=== PATIENT | male | born 1955 | race Caucasian/White ===

== ENCOUNTER 2019-05-29 16:39 | Observation (INO) | payer MEDICARE ==
[2019-05-29] MEDS ORDERED: ASPIRIN 81 MG TABLET, CHEWABLE PO ONE (16:41)
[2019-05-29 16:51] LABS: ABSOLUTE EOSINOPHILS # (AUTO) 0.3 10^3/uL (0.0-0.6); ABSOLUTE LYMPHOCYTES (AUTO) 1.5 10^3/uL (0.5-4.7); ABSOLUTE MONOCYTES (AUTO) 0.6 10^3/uL (0.1-1.4); ABSOLUTE NEUT (AUTO) 4.6 10^3/uL (1.7-8.2); BASOPHILS % (AUTO) 0.5 % (0-2); EOSINOPHILS % (AUTO) 3.8 % (0-6); HEMATOCRIT 42.5 % (37.9-51.0); HEMOGLOBIN 14.2 g/dL (13.5-17.0); LYMPHOCYTES % (AUTO) 21.3 % (13-45); MEAN CORPUSCULAR HEMOGLOBIN 31.1 pg (27.0-33.4); MEAN CORPUSCULAR HGB CONC 33.4 g/dL (32.0-36.0); MEAN CORPUSCULAR VOLUME 93 fl (80-97); MONOCYTES % (AUTO) 8.6 % (3-13); PLATELET COUNT 195 10^3/uL (150-450); RED BLOOD COUNT 4.56 10^6/uL (4.35-5.55); RED CELL DISTRIBUTION WIDTH 14.2 % (11.5-14.0); SEGMENTED NEUTROPHILS % (AUTO) 65.8 % (42-78); TOTAL CELLS COUNTED % (AUTO) 100 %
[2019-05-29 17:18] LABS: ALBUMIN 4.4 g/dL (3.5-5.0); ALKALINE PHOSPHATASE 77 U/L (38-126); ANION GAP 10 (5-19); ASPARTATE AMINO TRANSFERASE 28 U/L (17-59); BILIRUBIN,DIRECT 0.2 mg/dL (0.0-0.4); BILIRUBIN,TOTAL 0.4 mg/dL (0.2-1.3); BLOOD UREA NITROGEN 15 mg/dL (7-20); CALCIUM 10.2 mg/dL (8.4-10.2); CARBON DIOXIDE 32 mmol/L (22-30); CHLORIDE 98 mmol/L (98-107); CREATINE KINASE 47 U/L (55-170); GLUCOSE 163 mg/dL (75-110); POTASSIUM 4.6 mmol/L (3.6-5.0); TOTAL PROTEIN 6.9 g/dL (6.3-8.2)
[2019-05-29 17:24] LABS: CREATINE KINASE MB 0.93 ng/mL (<4.55)
[2019-05-29 17:35] LABS: TROPONIN I < 0.012 ng/mL
--- NOTE | 2019-05-29 18:25 | ER Document Report ---
ED Cardiac - General Chief Complaint: Chest Pain Stated Complaint: CHEST PAIN Time Seen by Provider: 05/29/19 17:07 Primary Care Provider: MEGAN YU PA-C [Primary Care Provider] - Follow up as needed Mode of Arrival: Ambulatory Information source: Patient TRAVEL OUTSIDE OF THE [place] IN LAST 30 DAYS: No - HPI Notes: 64-year-old male with history of diabetes and significant family history of heart disease presents with chest pain. He states it started approximately 3 days ago. Is been intermittent. It is a pressure sensation in the center of the chest that radiates to the left arm. It is moderate in intensity. He states that he has not had any type of cardiac evaluation in 2 years. 2 years ago he did have a negative heart catheterization. He states today he went saw his primary care doctor who stated that he had some "abnormalities" on his EKG and referred him to the emergency department. He states he had some nausea but no vomiting or diarrhea. No shortness of breath. No cough cold or congestion. - Related Data Allergies/Adverse Reactions: No Known Allergies Allergy (Verified 05/29/19 17:04) Past Medical History - General Information source: Patient - Social History Smoking Status: Current Some Day Smoker - States he smokes cigars Family History: CAD Patient has suicidal ideation: No Patient has homicidal ideation: No Review of Systems - Review of Systems Constitutional: denies: Chills, Fever Cardiovascular: Chest pain. denies: Palpitations Respiratory: denies: Cough, Short of breath Gastrointestinal: Nausea. denies: Abdominal pain, Vomiting -: Yes All other systems reviewed and negative Physical Exam - Vital signs Vitals: Resp BP Pulse Ox 23 H 126/82 H 100 05/29/19 16:54 05/29/19 16:54 05/29/19 16:54 Interpretation: Normal - General General appearance: Appears well, Alert - HEENT Head: Normocephalic, Atraumatic Eyes: Normal Pupils: PERRL - Respiratory Respiratory status: No respiratory distress Chest status: Nontender Breath sounds: Normal Chest palpation: Normal - Cardiovascular Rhythm: Regular Heart sounds: Normal auscultation Murmur: No - Abdominal Inspection: Normal Distension: No distension Bowel sounds: Normal Tenderness: Nontender Organomegaly: No organomegaly - Back Back: Normal, Nontender - Extremities General upper extremity: Normal inspection, Nontender, Normal color, Normal ROM, Normal temperature General lower extremity: Normal inspection, Nontender, Normal color, Normal ROM, Normal temperature, Normal weight bearing. No: Ehsan's sign - Neurological Neuro grossly intact: Yes Cognition: Normal Orientation: AAOx4 Trudy Coma Scale Eye Opening: Spontaneous Edison Coma Scale Verbal: Oriented Edison Coma Scale Motor: Obeys Commands Trudy Coma Scale Total: 15 Speech: Normal Motor strength normal: LUE, RUE, LLE, RLE Sensory: Normal - Psychological Associated symptoms: Normal affect, Normal mood - Skin Skin Temperature: Warm Skin Moisture: Dry Skin Color: Normal Course - Re-evaluation Re-evalutation: 05/29/19 18:23 64-year-old male with a heart score of 5 presents with chest pain for 3 days. Is been intermittent. No significant evaluation for 2 years. Based upon patient's risk score he will be admitted to telemetry for further evaluation. - Vital Signs Vital signs: Temp Pulse Resp BP Pulse Ox 98.7 F 15 122/70 97 05/29/19 16:58 05/29/19 18:01 05/29/19 18:01 05/29/19 18:01 - Laboratory Result Diagrams: 05/29/19 16:12 05/29/19 16:12 Laboratory results interpreted by me: 05/29/19 05/29/19 16:12 16:12 RDW 14.2 H Carbon Dioxide 32 H Glucose 163 H Creatine Kinase 47 L 05/29/19 18:23 Laboratory 05/29/19 05/29/19 05/29/19 16:12 16:12 16:12 WBC 7.0 RBC 4.56 Hgb 14.2 Hct 42.5 MCV 93 MCH 31.1 MCHC 33.4 RDW 14.2 H Plt Count 195 Lymph % (Auto) 21.3 Yates % (Auto) 8.6 Eos % (Auto) 3.8 Baso % (Auto) 0.5 Absolute Neuts (auto) 4.6 Absolute Lymphs (auto) 1.5 Absolute Monos (auto) 0.6 Absolute Eos (auto) 0.3 Absolute Basos (auto) 0.0 Seg Neutrophils % 65.8 Sodium 139.9 Potassium 4.6 Chloride 98 Carbon Dioxide 32 H Anion Gap 10 BUN 15 Creatinine 0.84 Est GFR ( Amer) > 60 Est GFR (MDRD) Non-Af > 60 Glucose 163 H Calcium 10.2 Total Bilirubin 0.4 Direct Bilirubin 0.2 Neonat Total Bilirubin Not Reportable Neonat Direct Bilirubin Not Reportable Neonat Indirect Bili Not Reportable AST 28 ALT 29 Alkaline Phosphatase 77 Creatine Kinase 47 L CK-MB (CK-2) 0.93 Troponin I < 0.012 Total Protein 6.9 Albumin 4.4 - Diagnostic Test Radiology reviewed: Image reviewed, Reports reviewed - EKG Interpretation by Me Rate: Normal - 68 Rhythm: Other - wap [place]/QRS: No: Right axis deviation, Left axis deviation Discharge - Discharge Clinical Impression: Chest pain at rest Condition: Fair Disposition: ADMITTED INPATIENT Admitting Provider: Sveta (Hospitalist) Unit Admitted: Telemetry Referrals: MEGAN YU PA-C [Primary Care Provider] - Follow up as needed
--- NOTE | 2019-05-29 18:26 | RADIOLOGY REPORT (SQ) ---
EXAM DESCRIPTION: CHEST SINGLE VIEW COMPLETED DATE/TIME: 05/29/2019 6:17 pm REASON FOR STUDY: bed 7 cp COMPARISON: None. EXAM PARAMETERS: NUMBER OF VIEWS: One view. TECHNIQUE: Single frontal radiographic view of the chest acquired. RADIATION DOSE: NA LIMITATIONS: Incomplete inspiration. FINDINGS: LUNGS AND PLEURA: No opacities, masses or pneumothorax. No pleural effusion. MEDIASTINUM AND HILAR STRUCTURES: No masses. Contour normal. HEART AND VASCULAR STRUCTURES: Heart normal in size. Aortic atherosclerosis. BONES: No acute findings. HARDWARE: None in the chest. OTHER: No other significant finding. IMPRESSION: No evidence of acute cardiopulmonary process. TECHNICAL DOCUMENTATION: JOB ID: [id number] [employer]- All Rights Reserved Reading location - IP/workstation name: [email or web address]
[2019-05-29] MEDS ORDERED: HYDRALAZINE HCL INJ/PF 20 MG/1 ML SDV IV PRN (18:48)
[2019-05-29] MEDS ORDERED: NITROGLYCERIN 0.4 MG/TAB 25 TAB/BOTTLE SL PRN (18:48)
[2019-05-29] MEDS ORDERED: MORPHINE SULFATE 10 MG/ML INJ IV PRN (18:48)
[2019-05-29] MEDS ORDERED: OXYCODONE-ACETAMINOPHEN 5-325 MG TABLET PO PRN (18:52)
[2019-05-29] MEDS ORDERED: GLUCAGON,HUMAN RECOMB 1 MG INJ SUBCUT PRN (18:52)
[2019-05-29] MEDS ORDERED: DEXTROSE 40% GEL 15 GM TUBE PO PRN ×4 (18:52→18:55)
[2019-05-29] MEDS ORDERED: TEMAZEPAM 7.5 MG CAPSULE PO PRN (18:52)
[2019-05-29] MEDS ORDERED: DEXTROSE 50%-WATER 25 GM/50 ML DISP.SYRIN IV PRN ×4 (18:52→18:55)
[2019-05-29] MEDS ORDERED: ONDANSETRON HCL INJ/PF 4 MG/2 ML SDV IV PRN (18:52)
[2019-05-29] MEDS ORDERED: IPRATROPIUM/ALBUTEROL 0.5-2.5 MG/3 ML AMPUL NEB PRN (18:52)
[2019-05-29] MEDS ORDERED: PROMETHAZINE HCL INJ 25 MG/1 ML VIAL IV PRN (18:52)
[2019-05-29] MEDS ORDERED: MAGNESIUM HYDROXIDE SUSP 30 ML UDCUP PO PRN (18:52)
[2019-05-29] MEDS ORDERED: NORMAL SALINE 1000 ML 1,000 ML IV PRN (18:52)
[2019-05-29] MEDS ORDERED: ACETAMINOPHEN 325 MG TABLET PO PRN (18:52)
[2019-05-29] MEDS ORDERED: GLUCAGON,HUMAN RECOMB 1 MG INJ IM PRN (18:55)
--- NOTE | 2019-05-29 19:05 | PDOC H&P ---
History of Present Illness Admission Date/PCP: 05/29/19 18:40 MEGAN YU PA-C History of Present Illness: SUSAN SOMMER is a 64 year old male past medical history of hypertension, samreen betes, dyslipidemia, CKD, significant past medical history of CAD, presented to presenting to ED complaining of substernal chest pain for the last several days, pain is pressure-like, constant, eases off with rest, no exacerbating factors identified, radiating to left arm, associated with diaphoresis, anxiety and nausea. Denies any fever, orthopnea, paroxysmal nocturnal dyspnea, and on exertion, extremity edema, abdominal pain, diarrhea, constipation or any urinary symptoms. Today he was seen by his PCP and some EKG abnormalities were noticed and patient was referred to ED. Stating he had a botched ERCP several years ago, coded, ended up in ICU for a month. EKG continues may have been chronic due to that. Family history is positive for father having NV at age 65 and brother having an NV at age 50. Positive family history of polycystic kidney disease. Social History Smoking Status: Current Some Day Smoker - States he smokes cigars Family History Family History: CAD Parental Family History Reviewed: Yes - CAD, PCKD Children Family History Reviewed: Yes Sibling(s) Family History Reviewed.: Yes Medication/Allergy Allergies/Adverse Reactions: No Known Allergies Allergy (Verified 05/29/19 17:04) Review of Systems Review of Systems: as per hpi Physical Exam Vital Signs: Temp Pulse Resp BP Pulse Ox 98.7 F 15 122/70 97 05/29/19 16:58 05/29/19 18:01 05/29/19 18:01 05/29/19 18:01 Intake & Output 05/28/19 05/29/19 05/30/19 06:59 06:59 06:59 Weight 95.5 kg General appearance: PRESENT: no acute distress, obese, well-developed, well- nourished Head exam: PRESENT: atraumatic, normocephalic Eye exam: PRESENT: conjunctiva pink, EOMI, PERRLA. ABSENT: scleral icterus Ear exam: PRESENT: normal external ear exam Mouth exam: PRESENT: moist, tongue midline Neck exam: ABSENT: carotid bruit, JVD, lymphadenopathy, thyromegaly Respiratory exam: PRESENT: clear to auscultation linda. ABSENT: rales, rhonchi, wheezes Cardiovascular exam: PRESENT: RRR. ABSENT: diastolic murmur, rubs, systolic murmur Pulses: PRESENT: normal dorsalis pedis pul Vascular exam: PRESENT: normal capillary refill GI/Abdominal exam: PRESENT: normal bowel sounds, soft. ABSENT: distended, guarding, mass, organolmegaly, rebound, tenderness Rectal exam: PRESENT: deferred Extremities exam: PRESENT: full ROM. ABSENT: calf tenderness, clubbing, pedal edema Neurological exam: PRESENT: alert, awake, oriented to person, oriented to place, oriented to time, oriented to situation, CN II-XII grossly intact. ABSENT: m otor sensory deficit Psychiatric exam: PRESENT: appropriate affect, normal mood. ABSENT: homicidal ideation, suicidal ideation Skin exam: PRESENT: dry, intact, warm. ABSENT: cyanosis, rash Results Laboratory Results: 05/29/19 16:12 05/29/19 16:12 05/29/19 05/29/19 16:12 16:12 WBC 7.0 RBC 4.56 Hgb 14.2 Hct 42.5 MCV 93 MCH 31.1 MCHC 33.4 RDW 14.2 H Plt Count 195 Seg Neutrophils % 65.8 Sodium 139.9 Potassium 4.6 Chloride 98 Carbon Dioxide 32 H Anion Gap 10 BUN 15 Creatinine 0.84 Est GFR ( Amer) > 60 Glucose 163 H Calcium 10.2 Total Bilirubin 0.4 AST 28 Alkaline Phosphatase 77 Total Protein 6.9 Albumin 4.4 05/29/19 05/29/19 16:12 16:12 Creatine Kinase 47 L CK-MB (CK-2) 0.93 Troponin I < 0.012 Impressions: Chest X-Ray 05/29/19 16:41 IMPRESSION: No evidence of acute cardiopulmonary process. Assessment and Plan - Diagnosis (1) Chest pain Is this a current diagnosis for this admission?: Yes Plan: Likely noncardiac. Positive family history of CAD. Risk factors of diabetes hypertension, dyslipidemia and CKD. No previous EKG to compare. Patient stating that he had a botched ERCP in several years ago and coded and was in ICU for 30 days. Not sure if EKG changes are chronic. Admit to telemetry, trend troponins, antiplatelets, statins, KRISTY, beta-blockers. Nuclear stress test tomorrow for further risk medication. (2) Diabetes Qualifiers: Diabetes mellitus type: type 2 Is this a current diagnosis for this admission?: Yes Plan: Takes oral hypoglycemics at home. No hemoglobin A1c available. Admitting diet, sliding scale, pre-meal insulin, hypoglycemia protocol, Accu- Chek. Adjust insulin dose as needed. Restart home meds upon discharge. Follw up A1c. (3) HTN (hypertension) Is this a current diagnosis for this admission?: Yes Plan: Euvolemic. Normotensive. Start home meds. Adjust meds as needed. (4) Hyperlipidemia Is this a current diagnosis for this admission?: Yes Plan: Takes Crestor at home. Start home meds. Lipid panel.
[2019-05-29 20:51] LABS: ANION GAP 10 (5-19); BLOOD UREA NITROGEN 15 mg/dL (7-20); CARBON DIOXIDE 30 mmol/L (22-30); CHLORIDE 101 mmol/L (98-107); GLUCOSE 147 mg/dL (75-110); POTASSIUM 4.7 mmol/L (3.6-5.0)
[2019-05-29] MEDS: ATORVASTATIN CALCIUM 40 MG TABLET PO SCH (21:28)
[2019-05-29] MEDS: FAMOTIDINE 20 MG TABLET PO SCH (21:28)
[2019-05-29] MEDS: INSULIN LISPRO 100 UNIT/ML 3 ML VIAL SUBCUT SCH (21:31)
[2019-05-29] MEDS: TRAZODONE HCL 50 MG TABLET PO SCH (22:14)
--- NOTE | 2019-05-30 00:30 | EKG REPORT ---
SEVERITY:- BORDERLINE ECG - UNKNOWN RHYTHM, IRREGULAR RATE 58-80 BORDERLINE T ABNORMALITIES, INFERIOR LEADS : Confirmed by: Zara Roy MD 30-May-2019 00:28:57
[2019-05-30] MEDS: INSULIN LISPRO 100 UNIT/ML 3 ML VIAL SUBCUT SCH ×4 (08:19→21:54)
[2019-05-30 09:05] LABS: ABSOLUTE EOSINOPHILS # (AUTO) 0.3 10^3/uL (0.0-0.6); ABSOLUTE LYMPHOCYTES (AUTO) 1.1 10^3/uL (0.5-4.7); ABSOLUTE MONOCYTES (AUTO) 0.4 10^3/uL (0.1-1.4); ABSOLUTE NEUT (AUTO) 3.4 10^3/uL (1.7-8.2); BASOPHILS % (AUTO) 0.6 % (0-2); EOSINOPHILS % (AUTO) 4.8 % (0-6); HEMATOCRIT 41.3 % (37.9-51.0); HEMOGLOBIN 13.8 g/dL (13.5-17.0); LYMPHOCYTES % (AUTO) 20.7 % (13-45); MEAN CORPUSCULAR HEMOGLOBIN 31.2 pg (27.0-33.4); MEAN CORPUSCULAR HGB CONC 33.5 g/dL (32.0-36.0); MEAN CORPUSCULAR VOLUME 93 fl (80-97); MONOCYTES % (AUTO) 8.6 % (3-13); PLATELET COUNT 171 10^3/uL (150-450); RED BLOOD COUNT 4.44 10^6/uL (4.35-5.55); RED CELL DISTRIBUTION WIDTH 13.8 % (11.5-14.0); SEGMENTED NEUTROPHILS % (AUTO) 65.3 % (42-78); TOTAL CELLS COUNTED % (AUTO) 100 %; WHITE BLOOD COUNT 5.3 10^3/uL (4.0-10.5)
[2019-05-30 09:30] LABS: CHOLESTEROL 103.64 mg/dL (0-200); TRIGLYCERIDES 183 mg/dL (<150)
[2019-05-30 09:40] LABS: DIRECT LDL 54 mg/dL (<100)
[2019-05-30 09:45] LABS: VLDL CHOLESTEROL 36.6 mg/dL (10-31)
--- NOTE | 2019-05-30 10:56 | PDOC PROGRESS REPORT ---
Subjective Progress Note for:: 05/30/19 Subjective:: 64-year-old male admitted to the hospital yesterday with chest pain troponin x3 is negative. Nuclear stress test today. Reason For Visit: CHEST PAIN Physical Exam Vital Signs: Temp Pulse Resp BP Pulse Ox 98.7 F 65 20 124/62 100 05/30/19 08:01 05/30/19 08:01 05/30/19 08:01 05/30/19 08:01 05/30/19 08:01 Intake & Output 05/29/19 05/30/19 05/31/19 06:59 06:59 06:59 Output Total 3 Balance -3 Weight 93.4 kg General appearance: PRESENT: no acute distress, well-developed, well-nourished, other - Eating up in bed in no distress. No significant chest pain. Respiratory exam: PRESENT: clear to auscultation linda. ABSENT: rales, rhonchi, wheezes Cardiovascular exam: PRESENT: RRR. ABSENT: diastolic murmur, rubs, systolic murmur Neurological exam: PRESENT: alert, awake, oriented to person, oriented to place, oriented to time, oriented to situation, CN II-XII grossly intact. ABSENT: motor sensory deficit Psychiatric exam: PRESENT: appropriate affect, normal mood. ABSENT: homicidal ideation, suicidal ideation Results Laboratory Results: 05/30/19 08:14 05/29/19 20:20 05/29/19 05/29/19 05/29/19 16:12 16:12 20:20 WBC 7.0 RBC 4.56 Hgb 14.2 Hct 42.5 MCV 93 MCH 31.1 MCHC 33.4 RDW 14.2 H Plt Count 195 Seg Neutrophils % 65.8 Sodium 139.9 140.5 Potassium 4.6 4.7 Chloride 98 101 Carbon Dioxide 32 H 30 Anion Gap 10 10 BUN 15 15 Creatinine 0.84 0.74 Est GFR ( Amer) > 60 > 60 Glucose 163 H 147 H Calcium 10.2 10.0 Magnesium Total Bilirubin 0.4 AST 28 Alkaline Phosphatase 77 Total Protein 6.9 Albumin 4.4 Triglycerides Cholesterol LDL Cholesterol Direct VLDL Cholesterol HDL Cholesterol 05/30/19 05/30/19 05/30/19 08:14 08:14 08:14 WBC 5.3 RBC 4.44 Hgb 13.8 Hct 41.3 MCV 93 MCH 31.2 MCHC 33.5 RDW 13.8 Plt Count 171 Seg Neutrophils % 65.3 Sodium Potassium Chloride Carbon Dioxide Anion Gap BUN Creatinine Est GFR ( Amer) Glucose Calcium Magnesium 2.0 Total Bilirubin AST Alkaline Phosphatase Total Protein Albumin Triglycerides 183 H Cholesterol 103.64 LDL Cholesterol Direct 54 VLDL Cholesterol 36.6 H HDL Cholesterol 33 L 05/29/19 05/29/19 05/29/19 16:12 16:12 20:20 Creatine Kinase 47 L CK-MB (CK-2) 0.93 Troponin I < 0.012 < 0.012 05/30/19 05/30/19 02:04 08:14 Creatine Kinase CK-MB (CK-2) Troponin I < 0.012 < 0.012 Impressions: Chest X-Ray 05/29/19 16:41 IMPRESSION: No evidence of acute cardiopulmonary process. Assessment and Plan - Diagnosis (1) Chest pain Is this a current diagnosis for this admission?: Yes Plan: Likely noncardiac. Positive family history of CAD. Risk factors of diabetes hypertension, dyslipidemia and CKD. No previous EKG to compare. Patient stating that he had a botched ERCP in several years ago and coded and was in ICU for 30 days. Not sure if EKG changes are chronic. Admit to telemetry, trend troponins, antiplatelets, statins, KRISTY, beta-blockers. Nuclear stress test tomorrow for further risk medication. 05/30/2019 patient states he actually lives in [place] last stress test was 3 years ago by executive staff assistant there. Patient states that if he needs to have any thing done he would like to go back to [place]. Patient has had troponins x3 which were negative. Nuclear stress test is scheduled for today. If no significant findings anticipate discharge tomorrow (2) Diabetes Qualifiers: Diabetes mellitus type: type 2 Is this a current diagnosis for this admission?: Yes Plan: Takes oral hypoglycemics at home. No hemoglobin A1c available. Admitting diet, sliding scale, pre-meal insulin, hypoglycemia protocol, Accu- Chek. Adjust insulin dose as needed. Restart home meds upon discharge. Follw up A1c. 05/30/2019 hemoglobin A1c today is 7.2% fingerstick glucose 163, 147 R to admission patient was taking combination drug alogliptin, metformin, will restart this (3) HTN (hypertension) Is this a current diagnosis for this admission?: Yes Plan: Euvolemic. Normotensive. Start home meds. Adjust meds as needed. 05/30/2019 prior to admission patient was taken 81 mg enteric-coated aspirin Cozaar 25 mg daily which will be resumed. Blood pressure this morning 134/75 and 124/62 - Time Time Spent with patient: 35 or more minutes
[2019-05-30] MEDS: DOCUSATE SODIUM 100 MG/10 ML UDC PO SCH (11:22)
[2019-05-30] MEDS: FAMOTIDINE 20 MG TABLET PO SCH ×2 (11:23→21:59)
[2019-05-30] MEDS: LOSARTAN POTASSIUM 50 MG TABLET PO SCH (11:23)
[2019-05-30] MEDS: ASPIRIN 81 MG TABLET, CHEWABLE PO SCH (11:24)
[2019-05-30] MEDS: ENOXAPARIN SODIUM INJ 40 MG/0.4 ML DISP.SYRIN SUBCUT SCH (11:24)
[2019-05-30] MEDS: METFORMIN HCL 500 MG TABLET PO SCH (17:37)
[2019-05-30] MEDS: TRAZODONE HCL 50 MG TABLET PO SCH (21:59)
[2019-05-30] MEDS: ATORVASTATIN CALCIUM 40 MG TABLET PO SCH (21:59)
--- NOTE | 2019-05-31 00:56 | DRAGON STRESS TEST REPORT ---
Exercise EKG treadmill Cardiolite stress test using SPECT. Data procedure: 05/30/2019. Ordering Provider: Dr. Bangura. Patient Status: In Patient Indication:: Chest pain coronary risk factors:. Age, diabetes, hypertension, hyperlipidemia, history of tobacco abuse disorder, and family history of coronary artery disease. Significant physical findings prior to stress testing show a blood pressure of 121/75, and a heart rate of 70 beats per minute. Auscultation of the heart shows normal S1 and S2. No S3 or S4 gallops. Systolic murmur in the left sternal border and apex. Lungs are clear to auscultation and percussion. Resting 12-lead EKG:. Rhythm. Poor R wave leads V1 to V6. Procedure: The patient was excised on a standard Martin protocol. . The patient walked a total of 7 minutes and 4 seconds on this protocol and reached a peak heart rate of 144 beats per minute, which is 91 % maximum predicted heart rate for age. This is at a workload of 10.1 METS. The test was stopped because of . The patient described no symptoms of chest pain/discomfort Exercise EKG's show: There is no EKG evidence of exercise-induced myocardial ischemia. Arrhythmias seen: None. The blood pressure response was normal. At peak exercise the blood pressure was 155/81 millimeters of Hg. The double product was 22.3 K. Summary of findings and interpretation: 1. No chest pain or chest discomfort symptoms reproduced. 2. No EKG evidence of ischemia in the form of ST segment depression. 3. Normal blood pressure response. 4. No arrhythmias seen. 5. Good exercise tolerance, [good] aerobic capacity. Diagnostic treadmill stress test negative for ischemia by EKG criteria. Recommendations: Correlate with nuclear Cardiolite images. Nuclear data: At rest the patient was given 14.92 millicuries of technetium 99 sestamibi, and as per protocol rest none gated SPECT images were obtained. The patient was exercised on a treadmill [see exercise physiology]. One minute prior to termination of exercise, 43.4 millicuries of technetium and there sestamibi was injected intravenously. As per protocol stress gated images were obtained. Impression: Review of images show that all segments of the myocardium had normal perfusion at rest, and normal perfusion post exercise. All segments of the myocardium had normal motion, contraction, and thickening by gated study. T. I D. ratio was 0.88. There is no transient ischemic dilatation of the left ventricle.. The computer read rest and stress left ventricular ejection fractions were 61 %, and 66 % respectively. . Conclusions: 1. No clinical symptoms of exercise-induced myocardial ischemia at a peak heart rate of 144 beats per minute, patient having achieved 91 % of maximum predicted heart rate for age, at a workload of 10.1 METS. 2. No EKG evidence of exercise-induced myocardial ischemia. 3. No arrhythmias seen 4. Blood pressure response to exercise.. 5. No scintigraphic evidence of exercise-induced myocardial ischemia. 6. No scintigraphic evidence of myocardial infarction/scar. Recommendations Aggressive coronary risk factor modification, and treatment of underlying comorbidities. MTDD
[2019-05-31 04:11] LABS: ABSOLUTE EOSINOPHILS # (AUTO) 0.2 10^3/uL (0.0-0.6); ABSOLUTE LYMPHOCYTES (AUTO) 1.3 10^3/uL (0.5-4.7); ABSOLUTE MONOCYTES (AUTO) 0.5 10^3/uL (0.1-1.4); ABSOLUTE NEUT (AUTO) 3.3 10^3/uL (1.7-8.2); BASOPHILS % (AUTO) 0.6 % (0-2); EOSINOPHILS % (AUTO) 4.5 % (0-6); HEMATOCRIT 40.2 % (37.9-51.0); HEMOGLOBIN 13.3 g/dL (13.5-17.0); LYMPHOCYTES % (AUTO) 23.7 % (13-45); MEAN CORPUSCULAR HEMOGLOBIN 30.9 pg (27.0-33.4); MEAN CORPUSCULAR VOLUME 94 fl (80-97); MONOCYTES % (AUTO) 9.9 % (3-13); PLATELET COUNT 153 10^3/uL (150-450); RED BLOOD COUNT 4.29 10^6/uL (4.35-5.55); RED CELL DISTRIBUTION WIDTH 13.9 % (11.5-14.0); SEGMENTED NEUTROPHILS % (AUTO) 61.3 % (42-78); TOTAL CELLS COUNTED % (AUTO) 100 %; WHITE BLOOD COUNT 5.4 10^3/uL (4.0-10.5)
[2019-05-31] MEDS: METFORMIN HCL 500 MG TABLET PO SCH (07:52)
[2019-05-31] MEDS: INSULIN LISPRO 100 UNIT/ML 3 ML VIAL SUBCUT SCH (07:53)
[2019-05-31] MEDS: DOCUSATE SODIUM 100 MG/10 ML UDC PO SCH (10:17)
[2019-05-31] MEDS: ENOXAPARIN SODIUM INJ 40 MG/0.4 ML DISP.SYRIN SUBCUT SCH (10:17)
[2019-05-31] MEDS: FAMOTIDINE 20 MG TABLET PO SCH (10:20)
[2019-05-31] MEDS: LOSARTAN POTASSIUM 50 MG TABLET PO SCH (10:21)
[2019-05-31] MEDS: ASPIRIN 81 MG TABLET, CHEWABLE PO SCH (10:21)
[2019-05-31 10:28] VITALS: BP 119/70
--- NOTE | 2019-05-31 12:49 | PDOC DISCHARGE SUMMARY ---
Impression - Admit/DC Date/PCP Admission Date/Primary Care Provider: 05/29/19 18:40 MEGAN YU PA-C Discharge Date: 05/31/19 - Discharge Diagnosis (1) Chest pain Is this a current diagnosis for this admission?: Yes (2) Diabetes Is this a current diagnosis for this admission?: Yes (3) HTN (hypertension) Is this a current diagnosis for this admission?: Yes - Additional Information Resuscitation Status: Full Code Discharge Diet: Diabetic Discharge Activity: Activity As Tolerated, Balance Activity w/Rest Referrals: MEGAN YU PA-C [Primary Care Provider] - 06/13/19 10:20 am FROY GAO MD [ACTIVE STAFF] - 06/12/19 11:00 am Prescriptions: Losartan Potassium [Cozaar 50 mg Tablet] 50 mg PO DAILY #30 tablet Nitroglycerin [Nitrostat 0.4 mg (1/150 Gr) Tabs 25/Bottle] 1 tab SL Q5MP PRN #25 bottle PRN Reason: Home Medications: Alogliptin Emmanuel/Metformin HCl [Alogliptin-Metformin 12.5-1000] 1 tab PO BID 05/29/19 Aspirin [Ecotrin 81 mg EC Tablet] 81 mg PO DAILY 05/29/19 Multivitamin [Tab-A-Rossana (Multiple Vitamin) Tablet] 1 tab PO DAILY 05/29/19 Rosuvastatin Calcium [Crestor] 10 mg PO DAILY 05/29/19 Trazodone HCl [Desyrel] 150 mg PO QHS 05/29/19 Aspirin [Aspirin 81 mg Chewable Tablet] 81 mg PO DAILY tab.chew 05/31/19 Losartan Potassium [Cozaar 50 mg Tablet] 50 mg PO DAILY #30 tablet 05/31/19 Nitroglycerin [Nitrostat 0.4 mg (1/150 Gr) Tabs 25/Bottle] 1 tab SL Q5MP PRN #25 bottle 05/31/19 Trazodone HCl [Desyrel 50 mg Tablet] 150 mg PO QHS tablet 05/31/19 History of Present Illiness History of Present Illness: SUSAN SOMMER is a 64 year old male Physical Exam Vital Signs: Temp Pulse Resp BP Pulse Ox 98.3 F 84 18 119/70 98 05/31/19 10:20 05/31/19 10:20 05/31/19 10:20 05/31/19 10:20 05/31/19 10:20 Intake & Output 05/30/19 05/31/19 06/01/19 06:59 06:59 06:59 Intake Total 1995 Output Total 3 Balance -3 1995 Weight 93.4 kg 89.2 kg Results Laboratory Results: WBC 5.4 10^3/uL (4.0-10.5) 05/31/19 03:55 RBC 4.29 10^6/uL (4.35-5.55) L 05/31/19 03:55 Hgb 13.3 g/dL (13.5-17.0) L 05/31/19 03:55 Hct 40.2 % (37.9-51.0) 05/31/19 03:55 MCV 94 fl (80-97) 05/31/19 03:55 MCH 30.9 pg (27.0-33.4) 05/31/19 03:55 MCHC 33.0 g/dL (32.0-36.0) 05/31/19 03:55 RDW 13.9 % (11.5-14.0) 05/31/19 03:55 Plt Count 153 10^3/uL (150-450) 05/31/19 03:55 Lymph % (Auto) 23.7 % (13-45) 05/31/19 03:55 [place] % (Auto) 9.9 % (3-13) 05/31/19 03:55 Eos % (Auto) 4.5 % (0-6) 05/31/19 03:55 Baso % (Auto) 0.6 % (0-2) 05/31/19 03:55 Absolute Neuts (auto) 3.3 10^3/uL (1.7-8.2) 05/31/19 03:55 Absolute Lymphs (auto) 1.3 10^3/uL (0.5-4.7) 05/31/19 03:55 Absolute Monos (auto) 0.5 10^3/uL (0.1-1.4) 05/31/19 03:55 Absolute Eos (auto) 0.2 10^3/uL (0.0-0.6) 05/31/19 03:55 Absolute Basos (auto) 0.0 10^3/uL (0.0-0.2) 05/31/19 03:55 Seg Neutrophils % 61.3 % (42-78) 05/31/19 03:55 Sodium 140.5 mmol/L (137-145) 05/29/19 20:20 Potassium 4.7 mmol/L (3.6-5.0) 05/29/19 20:20 Chloride 101 mmol/L (98-107) 05/29/19 20:20 Carbon Dioxide 30 mmol/L (22-30) 05/29/19 20:20 Anion Gap 10 (5-19) 05/29/19 20:20 BUN 15 mg/dL (7-20) 05/29/19 20:20 Creatinine 0.74 mg/dL (0.52-1.25) 05/29/19 20:20 Est GFR ( Amer) > 60 (>60) 05/29/19 20:20 Est GFR (MDRD) Non-Af > 60 (>60) 05/29/19 20:20 Glucose 147 mg/dL (75-110) H 05/29/19 20:20 POC Glucose 160 mg/dL (70-110) H 05/31/19 06:26 Hemoglobin A1c % 7.2 % (4.7-6.0) H 05/30/19 08:14 Calcium 10.0 mg/dL (8.4-10.2) 05/29/19 20:20 Magnesium 2.0 mg/dL (1.6-2.3) 05/31/19 03:55 Total Bilirubin 0.4 mg/dL (0.2-1.3) 05/29/19 16:12 Direct Bilirubin 0.2 mg/dL (0.0-0.4) 05/29/19 16:12 Neonat Total Bilirubin Not Reportable 05/29/19 16:12 Neonat Direct Bilirubin Not Reportable 05/29/19 16:12 Neonat Indirect Bili Not Reportable 05/29/19 16:12 AST 28 U/L (17-59) 05/29/19 16:12 ALT 29 U/L (<50) 05/29/19 16:12 Alkaline Phosphatase 77 U/L (38-126) 05/29/19 16:12 Creatine Kinase 47 U/L (55-170) L 05/29/19 16:12 CK-MB (CK-2) 0.93 ng/mL (<4.55) 05/29/19 16:12 Troponin I < 0.012 ng/mL 05/30/19 08:14 Total Protein 6.9 g/dL (6.3-8.2) 05/29/19 16:12 Albumin 4.4 g/dL (3.5-5.0) 05/29/19 16:12 Triglycerides 183 mg/dL (<150) H 05/30/19 08:14 Cholesterol 103.64 mg/dL (0-200) 05/30/19 08:14 LDL Cholesterol Direct 54 mg/dL (<100) 05/30/19 08:14 VLDL Cholesterol 36.6 mg/dL (10-31) H 05/30/19 08:14 HDL Cholesterol 33 mg/dL (>40) L 05/30/19 08:14 05/29/19 05/29/19 05/30/19 16:12 20:20 02:04 CK-MB (CK-2) 0.93 Troponin I < 0.012 < 0.012 < 0.012 05/30/19 08:14 CK-MB (CK-2) Troponin I < 0.012 Impressions: Chest X-Ray 05/29/19 16:41 IMPRESSION: No evidence of acute cardiopulmonary process. Stroke Is this a Stroke Patient?: No Acute Heart Failure - Is this a Heart Failure Patient?: No
== END 2019-05-31 11:10 | disposition home or self-care (01) ==
LOC: ER 16:39 → EH 18:40 → INTOOBSV 18:40 → 4N 20:59
PROVIDERS: ADMIT Internal Medicine; ATTEND Internal Medicine
DX: R07.89 Other chest pain (principal); E11.22 Type 2 diabetes mellitus with diabetic chronic kidney disease; I12.9 Hypertensive chronic kidney disease with stage 1 through stage 4 chronic kidney disease, or unspecified chronic kidney disease; N18.9 Chronic kidney disease, unspecified; F17.290 Nicotine dependence, other tobacco product, uncomplicated; E66.9 Obesity, unspecified; E78.5 Hyperlipidemia, unspecified; R11.0 Nausea; Z79.899 Other long term (current) drug therapy; Z79.82 Long term (current) use of aspirin; Z82.49 Family history of ischemic heart disease and other diseases of the circulatory system; Z79.84 Long term (current) use of oral hypoglycemic drugs
CPT/HCPCS: 93005; 99285; 36415 ×3; 82553; 82962 ×3; 82550; 83735 ×2; 85025 ×3; 80053; 84484 ×2; 83036; 80061; 93017; 71045; 78452; 93010; G0378 ×4; A9500; A9270 ×12; J1650; J3490; J7030; Q9969; J1815

== ENCOUNTER 2019-08-10 19:00 | Emergency (ER) | payer MEDICARE ==
[2019-08-10] MEDS ORDERED: NORMAL SALINE 1000 ML 1,000 ML IV ONE ×2 (19:23→23:02)
--- NOTE | 2019-08-10 19:25 | ER Document Report ---
ED Medical Screen (RME) - General Chief Complaint: Abscess Stated Complaint: ABSCESS Time Seen by Provider: 08/10/19 19:17 Primary Care Provider: MEGAN YU PA-C [Primary Care Provider] - Follow up as needed TRAVEL OUTSIDE OF THE [place] IN LAST 30 DAYS: No - HPI Notes: 08/10/19 19:23 Patient is a 64-year-old male with a history of type 2 diabetes who presents per the request of his doctor for having a liver abscess noted on CT scan that was performed yesterday at an outside source. Patient did come with his CT report, but no imaging. Patient has had right upper quadrant pain for the past 2 weeks, but worsening over the past couple days. The noted size was 5 x 6 cm. He is able to eat and drink without difficulty. He is urinating normally. Denies drug allergies. No fever, chest pain, shortness of breath, vomiting/diarrhea. I have treated and performed a rapid initial assessment of this patient. A comprehensive ED assessment and evaluation of the patient, analysis of test results and completion of medical decision making process will be conducted by additional ED providers. I briefly reviewed with Dr. Wagner, surgeon, who does recommend drainage by I nterventional radiology. Labs/imaging ordered. PHYSICAL EXAMINATION: GENERAL: Well-appearing, well-nourished and in no acute distress. A&Ox4. Answers questions appropriately. Abdomen: Noted tenderness in the right upper quadrant to palpation. - Related Data Allergies/Adverse Reactions: No Known Allergies Allergy (Verified 08/10/19 19:17) Past Medical History - Social History Chew tobacco use (# tins/day): No Frequency of alcohol use: Occasional Drug Abuse: None Physical Exam - Vital signs Vitals: Temp Pulse Resp BP Pulse Ox 99.3 F 97 16 141/65 H 96 08/10/19 19:05 08/10/19 19:05 08/10/19 19:05 08/10/19 19:05 08/10/19 19:05 Course - Vital Signs Vital signs: Temp Pulse Resp BP Pulse Ox 99.3 F 97 16 141/65 H 96 08/10/19 19:17 08/10/19 19:17 08/10/19 19:17 08/10/19 19:17 08/10/19 19:17 Doctor's Discharge - Discharge Referrals: MEGAN YU PA-C [Primary Care Provider] - Follow up as needed
[2019-08-10 20:27] LABS: ABSOLUTE EOSINOPHILS # (AUTO) 0.3 10^3/uL (0.0-0.6); ABSOLUTE LYMPHOCYTES (AUTO) 0.8 10^3/uL (0.5-4.7); ABSOLUTE MONOCYTES (AUTO) 0.8 10^3/uL (0.1-1.4); ABSOLUTE NEUT (AUTO) 7.3 10^3/uL (1.7-8.2); BASOPHILS % (AUTO) 0.4 % (0-2); EOSINOPHILS % (AUTO) 3.1 % (0-6); HEMATOCRIT 42.5 % (37.9-51.0); HEMOGLOBIN 14.1 g/dL (13.5-17.0); LYMPHOCYTES % (AUTO) 8.9 % (13-45); MEAN CORPUSCULAR HEMOGLOBIN 30.3 pg (27.0-33.4); MEAN CORPUSCULAR HGB CONC 33.1 g/dL (32.0-36.0); MEAN CORPUSCULAR VOLUME 92 fl (80-97); MONOCYTES % (AUTO) 8.2 % (3-13); PLATELET COUNT 243 10^3/uL (150-450); RED BLOOD COUNT 4.65 10^6/uL (4.35-5.55); RED CELL DISTRIBUTION WIDTH 13.4 % (11.5-14.0); SEGMENTED NEUTROPHILS % (AUTO) 79.4 % (42-78); TOTAL CELLS COUNTED % (AUTO) 100 %; WHITE BLOOD COUNT 9.2 10^3/uL (4.0-10.5)
[2019-08-10 20:53] LABS: ALBUMIN 4.2 g/dL (3.5-5.0); ALKALINE PHOSPHATASE 109 U/L (38-126); ANION GAP 13 (5-19); ASPARTATE AMINO TRANSFERASE 22 U/L (17-59); BILIRUBIN,DIRECT 0.2 mg/dL (0.0-0.4); BILIRUBIN,TOTAL 0.7 mg/dL (0.2-1.3); BLOOD UREA NITROGEN 16 mg/dL (7-20); CALCIUM 9.9 mg/dL (8.4-10.2); CARBON DIOXIDE 30 mmol/L (22-30); CHLORIDE 96 mmol/L (98-107); GLUCOSE 184 mg/dL (75-110); POTASSIUM 4.6 mmol/L (3.6-5.0); TOTAL PROTEIN 7.1 g/dL (6.3-8.2)
[2019-08-10] MEDS ORDERED: METRONIDAZOLE 500 MG/NS RTU 500 MG/100 ML RTUPB IV ONE ×2 (21:29→23:15)
[2019-08-10] MEDS ORDERED: CEFTRIAXONE 2 GM/D5W RTU 2 GM/50 ML RTUPB IV ONE ×2 (21:29→22:54)
[2019-08-10] MEDS ORDERED: MORPHINE SULFATE 10 MG/ML INJ IV ONE ×2 (21:30→23:03)
--- NOTE | 2019-08-10 21:48 | ER Document Report ---
ED General - General TRAVEL OUTSIDE OF THE [place] IN LAST 30 DAYS: No <GABBY PAUL - Last Filed: 08/10/19 23:45> <RAMOSTOVA Paige - Last Filed: 08/11/19 19:35> - General Chief Complaint: Abscess Stated Complaint: ABSCESS Time Seen by Provider: 08/10/19 19:17 Primary Care Provider: MEGAN YU PA-C [Primary Care Provider] - Follow up as needed Notes: 64-year-old male with history of diabetes presents with right upper quadrant pain that is been ongoing for the last few weeks that is worse in the last few days. Patient has associated nausea, no vomiting. Patient states he also had diarrhea that started last night. Patient states he has had a "low-grade fever of 99." Patient states he went to an urgent care and had a CT done today that showed a possible right hepatic abscess. Patient states he has an abscess to his pancreas that was drained 6 years ago. Patient states his diabetes is well under control, states his last A1c is 7. (GABBY PAUL) - Related Data Allergies/Adverse Reactions: No Known Allergies Allergy (Verified 08/10/19 19:17) Past Medical History - Social History Smoking Status: Current Some Day Smoker Chew tobacco use (# tins/day): No Frequency of alcohol use: Occasional Drug Abuse: None Family History: CAD Patient has suicidal ideation: No Patient has homicidal ideation: No <GABBY PAUL - Last Filed: 08/10/19 23:45> Review of Systems <GABBY PAUL - Last Filed: 08/10/19 23:45> - Review of Systems Notes: Constitutional: Positive for fever. HENT: Negative for sore throat. Eyes: Negative for visual changes. Cardiovascular: Negative for chest pain. Respiratory: Negative for shortness of breath. Gastrointestinal: Positive for abdominal pain or diarrhea. Negative for vomiting. Genitourinary: Negative for dysuria. Musculoskeletal: Negative for back pain. Skin: Negative for rash. Neurological: Negative for headaches, weakness or numbness. 10 point ROS negative except as marked above and in HPI. (GABBY PAUL) Physical Exam <GABBY PAUL - Last Filed: 08/10/19 23:45> - Vital signs Vitals: Temp Pulse Resp BP Pulse Ox 99.3 F 97 16 141/65 H 96 08/10/19 19:05 08/10/19 19:05 08/10/19 19:05 08/10/19 19:05 08/10/19 19:05 - Notes Notes: GENERAL: Well-appearing, well-nourished and in no acute distress while sitting up. HEAD: Atraumatic, normocephalic. EYES: Pupils equal round and reactive to light, extraocular movements intact, s clera anicteric, conjunctiva are normal. NECK: Normal range of motion, supple without lymphadenopathy or JVD. LUNGS: Breath sounds clear to auscultation bilaterally and equal. No wheezes rales or rhonchi. HEART: Regular rate and rhythm without murmurs, rubs or gallops. ABDOMEN: Soft, tenderness to RUQ with guarding. No masses appreciated. Surgical scar noted EXTREMITIES: Normal range of motion, no pitting or edema. No clubbing or cyanosis. NEUROLOGICAL: Cranial nerves II through XII grossly intact. Normal speech, normal gait. PSYCH: Normal mood, normal affect. SKIN: Warm, Dry, normal turgor, no rashes or lesions noted. (GABBY PAUL) Course - Laboratory Result Diagrams: 08/10/19 19:54 08/10/19 19:54 <GABBY PAUL - Last Filed: 08/10/19 23:45> - Laboratory Result Diagrams: 08/10/19 19:54 08/10/19 19:54 <TOVA RAMOS - Last Filed: 08/11/19 19:35> - Re-evaluation Re-evalutation: 08/10/19 64-year-old male presents with suspected hepatic abscess. Patient complains of right upper quadrant pain for past few weeks. CT results are currently pending. Lab work shows no leukocytosis. Patient states pain is worse with laying down. Nontoxic, well-appearing otherwise. 08/10/19 22:[address] Wagner who will come down to evaluate pt. 08/10/19 22:36 Spoke to Douglas with IR who states that they can drain liver abscess in morning if it needs to be drained. 08/10/19 23:03 Dr. Wagner evaluated pt and recommends transfer to [facility] due to complex past history of pancreatic abscess that required ERCP and cholecystectomy. Also recommended starting IV antibiotics and more pain medication as pt is complaining of increased pain and is diaphoretic. IV Flagyl 500 mg and Rocephin 2 gm ordered per UpToDate recommendations and another dose of morphine ordered. 08/10/19 23:15 Spoke to Harmony at [facility] to initiate transfer. 08/10/19 23:[address] Brayan Pinto, medicine attending, who accepted pt for admission. (GABBY PAUL) 08/11/19 08:12 Assumed care of patient from MILKA Paul. Patient is pending transfer to [facility] for further management of his hepatic abscess. He is currently getting Flagyl and Rocephin for ABX. No bed yet from [facility]. Did call the physician who accepted the patient at [facility] -- states he can eat breakfast/lunch. 08/11/19 11:20 Patient requested that I attempt to transfer him to [facility] for care. I placed a page out through their transfer center. I spoke with Dr. Khan, general surgery. He is willing to accept patient but would also like me to speak with IR and GI to make sure they are also on board for this patient. Transfer center will call me back with IR first, then GI. [facility] does also have a bed wait, but they are willing to place patient on their wait list. 08/11/19 16:03 Patient has a bed assignment at [facility]. Transport will be here for him at 7:30 PM. He is doing well. He will not be placed on a clear liquid diet. He has good pain control currently and we are continuing to monitor him. 08/11/19 19:32 Patient continues to do well. He will be transferred here shortly via transport - Transport just arrived for patient. He continues to not have controlled pain but will dose with pain medicine prior to transportation. He has a stable exam as follows: Alert and in no acute distress, regular rate and rhythm, no murmurs rubs or gallops, lungs are clear to auscultation with no wheezes rhonchi or rales, skin has good turgor and is dry, abdomen with mild right upper quadrant tenderness to palpation which is consistent with this hepatic abscess but no peritoneal signs. No CVA tenderness. Neurological exam reveals cranial nerves II through XII intact with no pronator drift and patient is alert and oriented x4. Patient is stable for transfer. (TOVA RAMOS) - Vital Signs Vital signs: Temp Pulse Resp BP Pulse Ox 98.6 F 97 20 120/87 H 97 08/11/19 19:29 08/10/19 19:17 08/11/19 17:45 08/11/19 19:20 08/11/19 19:20 - Laboratory Laboratory results interpreted by me: 08/10/19 08/10/19 08/11/19 19:54 19:54 07:52 Lymph % (Auto) 8.9 L Seg Neutrophils % 79.4 H Chloride 96 L Glucose 184 H POC Glucose 127 H Discharge - Discharge Admitting Provider: Brayan Pinto <GABBY PAUL - Last Filed: 08/10/19 23:45> <TOVA RAMOS - Last Filed: 08/11/19 19:35> - Discharge Clinical Impression: Hepatic abscess Condition: Stable Disposition: [facility] Referrals: MEGAN YU PA-C [Primary Care Provider] - Follow up as needed
--- NOTE | 2019-08-10 22:09 | RADIOLOGY REPORT (SQ) ---
EXAM DESCRIPTION: CT ABDOMEN PELVIS WITH IV CONTRAST COMPLETED DATE/TME: 08/10/2019 19:22 CLINICAL HISTORY: 64 years, Male, Abscess eval of liver-CT outside source yesterday This exam was performed according to our departmental dose-optimization program which includes automated exposure control, adjustment of the mA and/or kVp according to patient size and/or use of iterative reconstruction technique where applicable. No prior studies available for comparison at this institution. FINDINGS: Visualized lung bases are within normal limits. Liver demonstrates a ill-defined hypodense region in the right hepatic lobe measuring 5.5 cm which is consistent with given history. No significant biliary dilatation. Gallbladder appears collapsed or absent. Spleen is not enlarged. The pancreas is within normal limits. Adrenal glands and kidneys are within normal limits. No hydronephrosis. No dilated loops of bowel to suggest obstruction. Mild amount of stool in the colon. No free fluid or free air. Bladder is unremarkable. Status post bilateral hip arthroplasty. No abdominal or pelvic lymphadenopathy. Abdominal aorta is within normal limits. IMPRESSION: Right hepatic ill-defined heterogeneous hypodense lesion may represent fluid collection or abscess. Recommend follow-up nonemergent ultrasound for further evaluation.
[2019-08-10] MEDS ORDERED: ONDANSETRON HCL INJ/PF 4 MG/2 ML SDV IV ONE (22:43)
--- NOTE | 2019-08-10 23:32 | PDOC CONSULTATION ---
Consultation Consult Date: 08/10/19 Provider Consulted: EVER FERNANDEZ Consult reason:: Hepatic abscess History of Present Illness Admission Date/PCP: MEGAN YU PA-C History of Present Illness: SUSAN SOMMER is a 64 year old male with history of diabetes mellitus [id number], complications from ERCP in the past with subsequent pancreatic abscess has been complaining of right upper quadrant pains for the past week and a half. Yesterday the pains were worse then was sent from an urgent care to an imaging center for a CT scan of of the abdomen which showed hepatic abscess. Pains getting worse today and went to ED where a repeat CT scan of the abdomen revealed hepatic abscess. Patient in severe pains and needed IV morphine to get some relief. He claims the pains are worse when he lies down. The pains are in the right upper quadrant and in the back when he lies down. He admits to having low-grade fever but no chills. Has some nausea but no vomiting. He did have some diarrhea last night. Past Surgical History Past Surgical History: Reports: Cholecystectomy, Other - ERCP, open drainage of pancreatic abscess done [facility] Social History Smoking Status: Current Some Day Smoker Electronic Cigarette use?: No Family History Family History: CAD Parental Family History Reviewed: Yes Children Family History Reviewed: No Sibling(s) Family History Reviewed.: No Medication/Allergy Home Medications: Alogliptin Emmanuel/Metformin HCl [Alogliptin-Metformin 12.5-1000] 1 tab PO BID 05/29/19 Aspirin [Ecotrin 81 mg EC Tablet] 81 mg PO DAILY 05/29/19 Multivitamin [Tab-A-Rossana (Multiple Vitamin) Tablet] 1 tab PO DAILY 05/29/19 Rosuvastatin Calcium [Crestor] 10 mg PO DAILY 05/29/19 Trazodone HCl [Desyrel] 150 mg PO QHS 05/29/19 Aspirin [Aspirin 81 mg Chewable Tablet] 81 mg PO DAILY tab.chew 05/31/19 Losartan Potassium [Cozaar 50 mg Tablet] 50 mg PO DAILY #30 tablet 05/31/19 Nitroglycerin [Nitrostat 0.4 mg (1/150 Gr) Tabs 25/Bottle] 1 tab SL Q5MP PRN #25 bottle 05/31/19 Trazodone HCl [Desyrel 50 mg Tablet] 150 mg PO QHS tablet 05/31/19 Allergies/Adverse Reactions: No Known Allergies Allergy (Verified 08/10/19 19:17) Review of Systems Constitutional: PRESENT: as per HPI, fever(s) Gastrointestinal: PRESENT: abdominal pain, diarrhea, nausea Physical Exam Vital Signs: Temp Pulse Resp BP Pulse Ox 99.3 F 97 23 H 118/71 96 08/10/19 19:17 08/10/19 19:17 08/10/19 22:01 08/10/19 22:00 08/10/19 22:01 Intake & Output 08/09/19 08/10/19 08/11/19 06:59 06:59 06:59 Intake Total 1000 Balance 1000 Weight 91 kg General appearance: PRESENT: severe distress, other - diaphoretic Head exam: PRESENT: atraumatic Eye exam: PRESENT: conjunctiva pink GI/Abdominal exam: PRESENT: tenderness - Right upper quadrant Has right upper quadrant transverse incision and a midline incision Rectal exam: PRESENT: deferred Neurological exam: PRESENT: alert, oriented to person, oriented to place, oriented to time, oriented to situation Psychiatric exam: PRESENT: appropriate affect Skin exam: PRESENT: normal color, warm Results Laboratory Results: 08/10/19 19:54 08/10/19 19:54 08/10/19 08/10/19 19:54 19:54 WBC 9.2 RBC 4.65 Hgb 14.1 Hct 42.5 MCV 92 MCH 30.3 MCHC 33.1 RDW 13.4 Plt Count 243 Seg Neutrophils % 79.4 H Sodium 138.6 Potassium 4.6 Chloride 96 L Carbon Dioxide 30 Anion Gap 13 BUN 16 Creatinine 0.81 Est GFR ( Amer) > 60 Glucose 184 H Calcium 9.9 Total Bilirubin 0.7 AST 22 Alkaline Phosphatase 109 Total Protein 7.1 Albumin 4.2 Lipase 81.2 Impressions: Abdomen/Pelvis CT 08/10/19 19:22 IMPRESSION: Right hepatic ill-defined heterogeneous hypodense lesion may represent fluid collection or abscess. Recommend follow-up nonemergent ultrasound for further evaluation. Assessment & Plan - Diagnosis (1) Hepatic abscess Is this a current diagnosis for this admission?: Yes (2) Diabetes Qualifiers: Diabetes mellitus type: type 2 Is this a current diagnosis for this admission?: Yes (3) HTN (hypertension) Is this a current diagnosis for this admission?: Yes - Time Time Spent: 30 to 50 Minutes - Inpatient Certification Medical Necessity: Need For IV Fluids, Need for IV Antibiotics, Need for Surgery - Plan Summary Plan Summary: Assessment: 64-year-old male [id number] diabetes mellitus post ERCP with complications followed by cholecystectomy and drainage of pancreatic abscess. Has been complaining of right upper quadrant pains for the past week and a half getting worse in the past 1 and half days. Yesterday went to an urgent care and sent for a CT scan which showed hepatic abscess. This CAT scan was repeated in our ED which showed right lobe hepatic abscess. Patient is diaphoretic, low- grade fever with severe tenderness in the right upper quadrant and unable to lie down in bed because of severe pains. Plans: Patient needs to be in a tertiary care hospital with hepatic surgeon availability, infectious disease, and good interventional radiologist and park interpretive specialist. I have discussed these concerns with the patient and he seems to be agreeable to be transferred to tertiary care facility most [facility]. I discussed these plans with ER MILKA Paul who will make transfer arrangements. Will be available to talk to [facility] if needed. Meantime he needs to be given another bolus of IV fluids and start on broad-spectrum IV antibioticsand Morphine. He already had blood cultures taken. Lactic acid level will also be drawn as a baseline.
[2019-08-11] MEDS ORDERED: METRONIDAZOLE 500 MG/NS RTU 500 MG/100 ML RTUPB IV ONE (06:48)
[2019-08-11] MEDS ORDERED: MORPHINE SULFATE 10 MG/ML INJ IV ONE ×2 (07:17→19:34)
[2019-08-11] MEDS ORDERED: NORMAL SALINE 1000 ML 1,000 ML IV ONE (07:34)
[2019-08-11] MEDS ORDERED: METRONIDAZOLE 500 MG/NS RTU 500 MG/100 ML RTUPB IV SCH (14:00)
[2019-08-11 19:25] VITALS: BP 120/87
[2019-08-11] MEDS ORDERED: CEFTRIAXONE 2 GM/D5W RTU 2 GM/50 ML RTUPB IV SCH (22:00)
== END 2019-08-11 19:45 | disposition other institution (70) ==
LOC: ER 19:00
DX: K75.0 Abscess of liver (principal); E11.9 Type 2 diabetes mellitus without complications; R10.11 Right upper quadrant pain; R10.811 Right upper quadrant abdominal tenderness; R11.0 Nausea; R19.7 Diarrhea, unspecified; R50.9 Fever, unspecified; F17.200 Nicotine dependence, unspecified, uncomplicated; Z79.84 Long term (current) use of oral hypoglycemic drugs; Z79.82 Long term (current) use of aspirin; Z79.899 Other long term (current) drug therapy; Z90.49 Acquired absence of other specified parts of digestive tract
CPT/HCPCS: 36415; 87040; 82962; 83690; 85025; 80053; 83605; 74177; J3490 ×2; J2270 ×2; J2405; J7030 ×2; J0696; 96361; 96365; 96366; 96375; 96376; 99285